=== PATIENT | female | born 1965 | race Caucasian/White ===

== ENCOUNTER 2017-11-27 12:41 | Outpatient (CLI) | payer OTHER | END 2017-11-27 15:04 | disposition home or self-care (01) | LOC: MAMO-SONO 12:41 | DX: Z12.31 Encounter for screening mammogram for malignant neoplasm of breast (principal); Z13.1 Encounter for screening for diabetes mellitus; Z13.29 Encounter for screening for other suspected endocrine disorder; Z12.11 Encounter for screening for malignant neoplasm of colon ==

== ENCOUNTER 2017-12-24 10:20 | Outpatient (CLI) | payer OTHER | END 2017-12-24 10:25 | disposition home or self-care (01) | LOC: LAB 10:20 | DX: Z12.31 Encounter for screening mammogram for malignant neoplasm of breast (principal); Z13.1 Encounter for screening for diabetes mellitus; Z13.29 Encounter for screening for other suspected endocrine disorder; Z12.11 Encounter for screening for malignant neoplasm of colon ==

== ENCOUNTER 2018-05-16 10:29 | Outpatient (CLI) | payer OTHER | END 2018-05-16 11:01 | disposition home or self-care (01) | LOC: RAD 10:29 | DX: R10.11 Right upper quadrant pain (principal); M77.12 Lateral epicondylitis, left elbow ==

== ENCOUNTER → 2018-05-16 | Outpatient (CLI) | payer OTHER | END | disposition home or self-care (01) | LOC: LAB 09:48 | DX: N91.1 Secondary amenorrhea (principal); R11.12 Projectile vomiting; R63.4 Abnormal weight loss; A60.04 Herpesviral vulvovaginitis; R21 Rash and other nonspecific skin eruption; R50.9 Fever, unspecified ==

== ENCOUNTER 2019-01-20 12:01 | Outpatient (CLI) | payer OTHER | END 2019-01-20 15:25 | disposition home or self-care (01) | LOC: MAMO-SONO 12:01 | DX: Z12.31 Encounter for screening mammogram for malignant neoplasm of breast (principal) ==

== ENCOUNTER → 2019-10-16 | Outpatient (CLI) | payer OTHER | END | disposition home or self-care (01) | LOC: RAD 07:44 | DX: M54.2 Cervicalgia (principal) ==

== ENCOUNTER 2021-01-17 08:35 | Outpatient (CLI) | payer OTHER | END 2021-01-17 08:37 | disposition home or self-care (01) | LOC: LAB 08:35 | PROVIDERS: ATTEND General Practice | DX: N20.0 Calculus of kidney (principal) ==

== ENCOUNTER 2021-01-17 09:12 | Outpatient (CLI) | payer OTHER | END 2021-01-17 09:21 | disposition home or self-care (01) | LOC: RAD 09:12 | PROVIDERS: ATTEND General Practice | DX: R07.89 Other chest pain (principal); R05 Cough; Z12.31 Encounter for screening mammogram for malignant neoplasm of breast; Z13.89 Encounter for screening for other disorder; Z00.01 Encounter for general adult medical examination with abnormal findings; Z11.3 Encounter for screening for infections with a predominantly sexual mode of transmission; Z11.4 Encounter for screening for human immunodeficiency virus [HIV]; Z12.11 Encounter for screening for malignant neoplasm of colon; Z12.4 Encounter for screening for malignant neoplasm of cervix; Z13.220 Encounter for screening for lipoid disorders; Z13.228 Encounter for screening for other metabolic disorders; Z68.32 Body mass index [BMI] 32.0-32.9, adult ==

== ENCOUNTER 2021-01-31 12:46 | Outpatient (CLI) | payer OTHER | END 2021-01-31 13:02 | disposition home or self-care (01) | LOC: MAMO-SONO 12:46 | PROVIDERS: ATTEND General Practice | DX: Z12.31 Encounter for screening mammogram for malignant neoplasm of breast (principal); N64.59 Other signs and symptoms in breast; Z13.89 Encounter for screening for other disorder; R05 Cough; Z00.01 Encounter for general adult medical examination with abnormal findings; Z11.3 Encounter for screening for infections with a predominantly sexual mode of transmission; Z11.4 Encounter for screening for human immunodeficiency virus [HIV]; Z12.11 Encounter for screening for malignant neoplasm of colon; Z12.4 Encounter for screening for malignant neoplasm of cervix; Z13.1 Encounter for screening for diabetes mellitus; Z13.220 Encounter for screening for lipoid disorders; Z13.228 Encounter for screening for other metabolic disorders; Z68.32 Body mass index [BMI] 32.0-32.9, adult ==

== ENCOUNTER 2023-03-08 13:01 | Outpatient (CLI) | payer OTHER | END 2023-03-08 13:16 | disposition home or self-care (01) | LOC: MAMO-SONO 13:01 | PROVIDERS: ATTEND Specialist | DX: Z12.31 Encounter for screening mammogram for malignant neoplasm of breast (principal); G56.00 Carpal tunnel syndrome, unspecified upper limb; M25.59 Pain in other specified joint; E08.9 Diabetes mellitus due to underlying condition without complications ==

== ENCOUNTER → 2024-08-12 09:31 | Outpatient (CLI) | payer OTHER ==
[2024-08-12 10:39] LABS: PH,URINE 7.5 (5.0-8.0); URINE APPEARANCE Clear; URINE BILIRRUBIN Negative (NEGATIVE); URINE BLOOD Negative; URINE COLOR Yellow; URINE GLUCOSE Negative (NEGATIVE); URINE KETONE Negative (NEGATIVE); URINE LEUKOCYTE Small; URINE NITRATE Negative; URINE PROTEIN Negative (NEGATIVE)
[2024-08-12 10:40] LABS: URINE BACTERIA 4423.7 uL (0.0-1933); URINE EPITHELIAL CELLS 48.5 uL (0.0-38.8); URINE RBC 18.1 uL (0.0-20.8); URINE WBC 74.9 uL (0.0-23.2)
[2024-08-12 10:42] LABS: HEMATOCRIT 39.2 % (36.0-45.00); HEMOGLOBIN 13.2 g/dL (12.0-15.00); MEAN CELL VOLUME 83.5 fL (80.00-100.00); MEAN CORPUSCULAR HEMOGLOBIN 28.2 pg (27.00-32.0); MEAN CORPUSCULAR HGB CONC 33.8 g/dl (32.0-36.0); PLATELET COUNT 233 K/uL (150-450); RED BLOOD COUNT 4.69 M/uL (4.00-6.00); RED CELL DISTRIBUTION WIDTH 15.7 % (11.5-14.5)
[2024-08-12 10:52] LABS: URINE CAST 0.76 uL (0.0-1.40)
[2024-08-12 11:15] LABS: BILIRUBIN TOTAL 0.76 mg/dL (0.3-1.2); CALCIUM 8.7 mg/dL (8.5-10.1); CHOL HDL RATIO 2.7 (0-5.0); CREATININE SERUM 0.52 mg/dL (0.55-1.02); GFR 121.11; GLOBULINA 3.1 G/DL (2.4-3.5); POTASSIUM 4.14 mEq/L (3.5-5.1); TOTAL PROTEIN 7.1 gm/dL (6.4-8.2); TSH 1.2 uIU/mL (0.358-3.74)
== END | disposition home or self-care (01) ==
LOC: LAB 09:31
PROVIDERS: ATTEND Specialist
DX: E78.5 Hyperlipidemia, unspecified (principal); E11.9 Type 2 diabetes mellitus without complications; Z12.31 Encounter for screening mammogram for malignant neoplasm of breast

== ENCOUNTER 2024-08-12 10:10 | Outpatient (CLI) | payer OTHER | END 2024-08-12 10:22 | disposition home or self-care (01) | LOC: MAMO-SONO 10:10 | PROVIDERS: ATTEND Specialist | DX: E78.5 Hyperlipidemia, unspecified (principal); E11.9 Type 2 diabetes mellitus without complications; Z12.31 Encounter for screening mammogram for malignant neoplasm of breast ==

== ENCOUNTER 2025-08-10 10:06 | Outpatient (CLI) | payer OTHER | END 2025-08-10 10:09 | disposition home or self-care (01) | LOC: MAMO-SONO 10:06 | PROVIDERS: ATTEND Specialist | DX: E11.9 Type 2 diabetes mellitus without complications (principal); Z12.31 Encounter for screening mammogram for malignant neoplasm of breast; R10.9 Unspecified abdominal pain; Z12.11 Encounter for screening for malignant neoplasm of colon ==

== ENCOUNTER 2025-08-14 07:42 | Outpatient (CLI) | payer OTHER | END 2025-08-14 07:51 | disposition home or self-care (01) | LOC: TOM 07:42 | PROVIDERS: ATTEND Specialist | DX: R10.9 Unspecified abdominal pain (principal); Z12.11 Encounter for screening for malignant neoplasm of colon; E11.9 Type 2 diabetes mellitus without complications ==